=== PATIENT | female | born 1965 | race Caucasian/White ===

== ENCOUNTER → 2016-09-26 | Outpatient (CLI) | payer OTHER ==
--- NOTE | 2016-09-26 16:23 | MA ---
Screening Bilateral Digital Mammogram History: Screening. Breast parenchymal density: C. Technique: Four digital views of each breast are obtained including CC and oblique lateral Lillie (im plant displaced) and non-Lillie (implant not displaced) views. CAD is utilized using the [id number] product . Comparison: July 2015. Findings: Bilateral breast implants are in place. No suspicious areas are identified. Impression: Negative mammogram. Routine screening is recommended in one year. BIRADS : 1, Negative. [facility] will send a result letter to the patient. Negative mammography should not preclude additional workup of a clinically suspicious finding. The patient's information is entered into a reminder system with a target due date for her next mammo gram.
== END ==
LOC: FIMAGING 11:18
DX: Z12.31 Encounter for screening mammogram for malignant neoplasm of breast (principal)
CPT/HCPCS: G0202